=== PATIENT | male | born 1980 | race Caucasian/White ===

== ENCOUNTER 2022-12-01 09:38 | Emergency (ER) | payer OTHER, SELFPAY ==
[2022-12-01 09:49] VITALS: BP 107/85; PULSE 65; RESP 16; TEMP 36.3; O2SAT 99
--- NOTE | 2022-12-01 10:17 | ED.EAR ---
HPI - Ear Problem General Chief complaint: Ear Stated complaint: ear pain Time Seen by Provider: 12/01/22 10:17 Source: patient Mode of arrival: ambulatory Limitations: no limitations History of Present Illness HPI Narrative: 42-year-old male presented for complaint of right ear pain today. Also endorses the last 4 days with sinus congestion and postnasal drainage, and sore throat. Patient has taken ibuprofen for symptoms. Denies sick contacts. Currently rates ear pain 3/10, but states he woke with more severe pain. He has inserted a cotton ball due to cold wind. Denies tinnitus, dizziness, ear drainage, nausea, vomiting, diarrhea, fevers or chills. MD Complaint: ear pain Related Data Allergies Allergy/AdvReac Type Severity Reaction Status Date / Time No Known Allergies Allergy Verified 12/01/22 09:58 Review of Systems Review of Systems: CONSTITUTIONAL: Denies malaise, chills, or fever. EYES: Denies visual changes, redness, or discharge. ENT: per HPI CARDIOVASCULAR: Denies chest pain, palpitations, or edema. RESPIRATORY: Denies cough or dyspnea. GASTROINTESTINAL: Denies abdominal pain, nausea, vomiting, diarrhea SKIN: Denies rash or itching. MUSCULOSKELETAL: Denies myalgia. NEUROLOGIC: Denies headache. All systems reviewed & are unremarkable except as noted in HPI and below PMFSH Past Medical History Medical History (Updated 12/01/22 @ 10:28 by Berkley Lozada, HOWIE) No pertinent past medical history Comments At time of signature, agree with nursing past medical, surgical, social and family history. There is no relevant family history pertinent to the presenting complaint Exam Narrative: GENERAL: Well-appearing, well-nourished, and in no acute distress. HEAD: Normocephalic EYES: PERRLA, conjunctivae clear ENT: Nares clear. Mucous membranes moist. Left TM pearly johnson with dull light reflex; Right TM erythematous and bulging; no tragal tenderness. Oropharynx erythematous without lesions. Tonsils not enlarged no drooling, no hoarseness, no trismus, uvula midline. NECK: Supple. No lymphadenopathy CHEST: Clear to auscultation, breath sounds equal. HEART: Regular rate and rhythm. No murmur heard. SKIN: Warm, dry, no rash. NEURO: Alert and oriented x3. PSYCH: Normal mood and affect Course Course Emergency Course: Patient is aware of diagnosis, understands and agrees to treatment plan. Anticipatory guidance given. Patient agrees to follow-up as directed and is aware of reasons to seek care at the emergency department. Portions of this record may have been created with voice recognition software Level of Care: Express Care Visit Vital Signs Vital signs: Vital Signs Temperature 97.3 F L 12/01/22 09:49 Pulse Rate 65 12/01/22 09:49 Respiratory Rate 16 12/01/22 09:49 Blood Pressure 107/85 12/01/22 09:49 Pulse Oximetry 99 12/01/22 09:49 Oxygen Delivery Room Air 12/01/22 09:49 Temperature 97.3 F L 12/01/22 09:49 Pulse Rate 65 12/01/22 09:49 Respiratory Rate 16 12/01/22 09:49 Blood Pressure 107/85 12/01/22 09:49 Pulse Oximetry 99 12/01/22 09:49 Oxygen Delivery Room Air 12/01/22 09:49 Reviewed Medical Decision Making MDM Narrative Medical decision making narrative: Advised supportive measures and signs/symptoms to go to the ER. Patient is appropriate for outpatient treatment and follow-up. Differential Diagnosis Differential Diagnosis: Coronavirus, strep pharyngitis, allergic rhinitis, upper respiratory tract infection, sinusitis, rhinosinusitis, nasopharyngitis, viral pharyngitis, otitis media, otitis externa, eustachian tube dysfunction, foreign body, cerumen impaction. Vital Signs Vital Signs: Vital Signs Temperature 97.3 F L 12/01/22 09:49 Pulse Rate 65 12/01/22 09:49 Respiratory Rate 16 12/01/22 09:49 Blood Pressure 107/85 12/01/22 09:49 Pulse Oximetry 99 12/01/22 09:49 Oxygen Delivery Room Air 12/01/22 09:49 Temperature 97.3 F
== END 2022-12-01 10:29 | disposition home or self-care (01) ==
PROVIDERS: Emergency Provider Nurse Practitioner Family
DX: H66.91 Otitis media, unspecified, right ear (principal)
CPT/HCPCS: 99213; G0463

== ENCOUNTER 2024-03-08 15:05 | Emergency (ER) | payer OTHER, SELFPAY ==
--- NOTE | ~2024-03-08 | US_ITS ---
EXAMINATION: US scrotum doppler DATE: 03/08/2024 15:46 INDICATION: Right scrotal pain. TECHNIQUE: Grayscale and Doppler ultrasound images of the testes were obtained. COMPARISON: None. FINDINGS: The right testis measures 4.6 x 2.6 x 3.2 cm. The left testis measures 4.9 x 2.8 x 2.6 cm. There is normal vascular flow to both testes. The right epididymis demonstrates an 8 mm cyst. The lef t epididymis demonstrates a 6 mm cyst. There is no hydrocele. There is a left-sided varicocele. IMPRESSION: 1. No etiology for the patient's symptoms. 2. Left-sided varicocele. Reviewed, dictated and finalized at location E.
--- NOTE | ~2024-03-08 | CT_ITS ---
EXAMINATION: CT abdomen pelvis wo con DATE: 03/08/2024 16:03 INDICATION: Right-sided scrotal pain. Right inguinal pain. TECHNIQUE: Computed tomography (CT) of the abdomen and pelvis was performed without intravenous contr ast. Automated exposure control and iterative reconstruction technique were employed. The dose-length product was 281.18 mGy-cm. COMPARISON: CT abdomen and pelvis 11/15/2011 FINDINGS: The visualized portions of the lung bases demonstrate minimal atelectasis. No pleural effus ion. The heart size is normal. No pericardial effusion. The liver, gallbladder, spleen, pancreas, adr enal glands, and kidneys are normal. There is no urolithiasis. There are no dilated loops of bowel. T he appendix is not visualized. There are no pathologically enlarged lymph nodes. There is no free int raperitoneal fluid. There is severe degenerative disc disease at L5-S1. IMPRESSION: 1. No urolithiasis. Reviewed, dictated and finalized at location E. IMPRESSION: 1. No urolithiasis.
[2024-03-08 15:07] VITALS: BP 121/53; PULSE 58; RESP 20; TEMP 36.1; O2SAT 100
--- NOTE | 2024-03-08 15:16 | ED.GENADULT ---
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 Related Data Allergies Allergy/AdvReac Type Severity Reaction Status Date / Time No Known Allergies Allergy Verified 12/01/22 09:58 Review of Systems Review of Systems: All systems reviewed & are unremarkable except as noted in HPI and below [facility] Past Medical History Medical History (Updated 03/08/24 @ 16:21 by Maru Clemens MD) No pertinent past medical history Exam Narrative: EXAMINATION OF ORGAN SYSTEMS/BODY AREAS: Constitutional: Vital signs per nursing GENERAL: Appears slightly uncomfortable HEAD: Normal with no signs of head trauma. EYES: EOMI, conjunctiva normal ENT: Hearing grossly intact LUNGS: Nonlabored breathing. HEART: [Regular rate and rhythm] ABD: [Soft], mild inguinal tenderness : with architectural modeler at bedside. Some tenderness to R scrotum EXT: Normal range of motion SKIN: [No rashes or lesions.] NEURO: [Alert and oriented x 3. No gross focal sensory or strength deficits.] PSYCH: Normal affect Course Vital Signs Vital signs: Vital Signs Temperature 97 F L 03/08/24 15:07 Pulse Rate 58 L 03/08/24 15:07 Respiratory Rate 03/08/24 15:07 Blood Pressure 121/53 L 03/08/24 15:07 Pulse Oximetry 100 03/08/24 15:07 Temperature 97 F L 03/08/24 15:07 Pulse Rate 58 L 03/08/24 15:07 Respiratory Rate 03/08/24 15:07 Blood Pressure 121/53 L 03/08/24 15:07 Pulse Oximetry 100 03/08/24 15:07 Medical Decision Making [facility] Narrative Medical decision making narrative: patient presents with right-sided groin pain for last day, he appears slightly uncomfortable here, does have some tenderness to the inguinal right abdomen, and some tenderness to the right scrotum. I suspect possible inguinal hernia versus possible epididymitis, or kidney stones since he has had them in the past, versus MSK pain. Urinalysis and imaging ordered. imaging and labs unremarkable. I therefore suspect likely musculoskeletal pain. Patient given pain medication and follow-up information to PCP with return precautions Vital Signs Vital Signs: Vital Signs Temperature 97 F L 03/08/24 15:07 Pulse Rate 58 L 03/08/24 15:07 Respiratory Rate 20 03/08/24 15:07 Blood Pressure 121/53 L 03/08/24 15:07 Pulse Oximetry 100 03/08/24 15:07 Temperature 97 F L 03/08/24 15:07 Pulse Rate 58 L 03/08/24 15:07 Respiratory Rate 20 03/08/24 15:07 Blood Pressure 121/53 L 03/08/24 15:07 Pulse Oximetry 100 03/08/24 15:07 Lab Data Labs: Lab Results 03/08/24 Range/Units 15:23 Urine Color Yellow (Yellow) Urine Appearance Clear (Clear) Urine pH 5.0 (5.0-9.0) Ur Specific [place] 1.023 (1.001-1.035) Urine Protein Negative (Negative) mg/dL Urine Glucose (UA) Negative (Negative) mg/dL Urine Ketones Negative (Negative) mg/dL Ur Blood (Man) Trace (Negative) Urine Nitrate Negative (Negative) Urine Bilirubin Negative (Negative) Urine Urobilinogen 0.2 (<2.0) mg/dL Leukocyte Esterase Rfl Negative (Negative) ALMA/UL Urine RBC 0-2 (0-2) /hpf Urine WBC 0-5 (0-3) /hpf Ur Squamous Epith Cells None seen (Few) /hpf Urine Bacteria None seen /hpf Urine Casts 0-2 Discharge Plan Discharge Clinical Impression: Right groin pain Patient Disposition: Home, Self-Care Condition: Stable Instructions: Antibiotic Form, Groin Strain (ED) Additional Instructions: You can follow up with a PCP; return to the ER if you feel worse. Prescriptions: New methocarbamol 750 mg tablet 750 mg PO TID PRN (Reason: muscle spasm) Qty: 30 0RF ibuprofen 600 mg tablet
[2024-03-08 15:32] LABS: Appearance Urine Clear (Clear); Bacteria Urine None Seen /hpf; Bilirubin Urine Negative (Negative); Blood Urine Trace (Negative); Color Urine Yellow (Yellow); Glucose Urine UA Negative (Negative); Ketones Urine Negative (Negative); Leukocyte Esterase Ur Negative LEU/UL (Negative); Nitrate Urine Negative (Negative); Non Pathogenic Casts 0-2; Protein Urine Negative (Negative); RBC Urine 0-2 /hpf (0-2); Specific Grav Ur 1.023 (1.001-1.035); Squamous Epithelial Cell Urine None Seen /hpf (Few); Urobilinogen Urine 0.2 mg/dL (<2.0); WBC Urine 0-5 /hpf (0-3)
[2024-03-08 15:33] LABS: Add Urine Microscopic? YES
[2024-03-08] MEDS: KETOROLAC 10 MG TABLET PO (16:36)
== END 2024-03-08 17:15 | disposition home or self-care (01) ==
PROVIDERS: Emergency Provider Emergency Medicine
DX: R10.31 Right lower quadrant pain (principal)
CPT/HCPCS: 74176; 76870; 81001; 93976; 99284; A9270